=== PATIENT | male | born 1970 | race Two or more races ===

== ENCOUNTER 2021-01-29 15:12 | Emergency (ER) | payer SELFPAY ==
[2021-01-29 15:24] VITALS: BP 154/90; PULSE 88; TEMP 97.7; BMI 27.2
== END 2021-01-29 18:01 | disposition home or self-care (01) ==
LOC: JERFT 15:12
PROC: 08QNXZZ Repair Right Upper Eyelid, External Approach (ICD-10-PCS; principal; 2021-01-29)
DX: S01.111A Laceration without foreign body of right eyelid and periocular area, initial encounter (principal)
CPT/HCPCS: 99282-25